=== PATIENT | female | born 1965 | race Two or more races ===

== ENCOUNTER 2018-11-11 09:09 | Emergency (ER) | payer SELFPAY ==
[~2018-11-11] VITALS: Ht 154.9 cm; Wt 59.0 kg
[2018-11-11 09:27] VITALS: BP 107/49
[2018-11-11] MEDS ORDERED: cefTRIAXone SOD 1,000 MG VL IM ONE (12:30)
[2018-11-11] MEDS ORDERED: TETANUS-DIPTH-ACEL PERTUSSIS 0.5ML SYRG IM ONE (12:45)
== END 2018-11-11 13:27 | disposition home or self-care (01) ==
LOC: ER 09:09
DX: S91.051A Open bite, right ankle, initial encounter (principal); W55.01XA Bitten by cat, initial encounter; Y93.89 Activity, other specified; Y99.8 Other external cause status; Y92.89 Other specified places as the place of occurrence of the external cause
CPT/HCPCS: 73590; 73610; 90471; 90715; 93971; 96372; 99284; J0696